=== PATIENT | female | born 1955 | race Caucasian/White ===

== ENCOUNTER 2023-09-23 14:01 | Inpatient (IN) | payer SELFPAY ==
[~2023-09-23] VITALS: Ht 157.5 cm; Wt 77.6 kg
[2023-09-23] MEDS: SODIUM CHLORIDE 0.9% 1,000 ML IV SCH (02:00)
[2023-09-23 14:53] LABS: HEMATOCRIT. 37.6 % (36.0-48.0); HEMOGLOBIN. 12.5 g/dL (12.0-16.0); MEAN CORPUSCULAR HGB CONC 33.3 g/dL (31.0-37.0); MEAN CORPUSCULAR VOLUME 90.4 fL (81.0-99.0); MEAN PLATELET VOLUME 8.9 fl (7.4-10.4); PLATELET 245 x1000/uL (130-400); RED BLOOD CELL COUNT 4.16 mill/uL (4.2-5.4); RED CELL DISTRIBUTION WIDTH 13.1 % (11.6-14.6); WHITE BLOOD COUNT 26.2 x1000/uL (4.5-11.0)
[2023-09-23 15:00] LABS: DIFFERENTIAL COMMENT 1
[2023-09-23 15:06] LABS: ALANINE AMINOTRANSFERASE 15 IU/L (10-49); ALBUMIN 4.6 g/dL (3.2-4.8); ASPARTATE AMINOTRANSFERASE 19 IU/L (<34); BILIRUBIN TOTAL 0.7 mg/dL (0.1-1.0); CALCIUM 9.2 mg/dL (8.7-10.4); CARBON DIOXIDE 23 mEq/L (21-32); CHLORIDE 99 mEq/L (98-107); CREATININE 0.9 mg/dL (0.6-1.0); GLUCOSE 169 mg/dL (70-105); POTASSIUM 3.3 mEq/L (3.5-5.1); PROTEIN TOTAL 8.6 g/dL (6.0-8.3); SODIUM 133 mEq/L (136-145); TROPONIN I HIGH SENSITIVITY 4 ng/L (3.0-34); UREA NITROGEN BLOOD 16 mg/dL (9-23)
[2023-09-23] MEDS ORDERED: IPRATROPIUM BROMIDE (0.02%) 0.5MG/2.5ML NEB HHN STA (15:34)
[2023-09-23] MEDS ORDERED: HYDROCODONE/ACETAMINOPHEN 5/325MG TABLET PO STA (15:34)
[2023-09-23] MEDS ORDERED: ALBUTEROL (0.083%) 2.5MG/3ML NEB HHN STA (15:34)
[2023-09-23] MEDS ORDERED: PREDNISONE 20MG TABLET PO STA (15:34)
[2023-09-23] MEDS ORDERED: SODIUM CHLORIDE 0.9% 1000ML BAG (SEPSIS BOLUS) IV ONE (15:45)
[2023-09-23] MEDS ORDERED: AZITHROMYCIN 500MG/250ML 250 ML IV NR (15:45)
[2023-09-23] MEDS ORDERED: LEVOFLOXACIN 250MG TABLET PO ONE (15:45)
[2023-09-23] MEDS ORDERED: CEFTRIAXONE 1GM PREMIX 50 ML IV NR (15:45)
[2023-09-23 15:49] LABS: PLATELET ESTIMATE NORMAL
[2023-09-23] MEDS ORDERED: IPRATROPIUM BROMIDE (0.02%) 0.5MG/2.5ML NEB HHN NR (16:00)
[2023-09-23] MEDS ORDERED: ALBUTEROL (0.083%) 2.5MG/3ML NEB HHN NR (16:00)
[2023-09-23] MEDS ORDERED: PREDNISONE 20MG TABLET PO NR (16:00)
[2023-09-23] MEDS ORDERED: HYDROCODONE/ACETAMINOPHEN 5/325MG TABLET PO NR (16:00)
[2023-09-23 16:05] VITALS: PULSE 106; RESP 22; O2SAT 96
[2023-09-23] MEDS ORDERED: POTASSIUM CHLORIDE 20MEQ TABLET SR PO NR (16:30)
[2023-09-23] MEDS ORDERED: ONDANSETRON HCL 4MG/2ML INJ IV ONE (18:00)
[2023-09-23] MEDS ORDERED: ONDANSETRON HCL 4MG/2ML INJ IV NR (21:00)
[2023-09-23 22:05] VITALS: BP 106/53; PULSE 94; RESP 20; TEMP 96.3
[2023-09-23] MEDS ORDERED: ACETAMINOPHEN 325MG TABLET PO PRN ×2 (22:45)
[2023-09-23] MEDS ORDERED: CLONIDINE 0.1MG TABLET PO PRN (22:45)
[2023-09-23] MEDS ORDERED: ONDANSETRON HCL 4MG/2ML INJ IV PRN (22:45)
[2023-09-23] MEDS ORDERED: KETOROLAC 30MG/ML VIAL IV NR (22:45)
[2023-09-23] MEDS ORDERED: MAGNESIUM/ALUMINUM HYDROXIDE/SIMETHICONE 30ML UDC PO PRN (22:45)
[2023-09-23] MEDS ORDERED: DOCUSATE SODIUM 100MG CAPSULE PO PRN (22:45)
[2023-09-23] MEDS ORDERED: GUAIFENESIN 200MG/10ML SUGAR FREE UDC PO PRN (22:45)
[2023-09-23] MEDS ORDERED: IPRATROPIUM/ALBUTEROL 0.5-3(2.5)MG/3ML NEB HHN PRN (22:45)
[2023-09-24 03:05] VITALS: BP 107/45; PULSE 87; RESP 18; TEMP 97
[2023-09-24] MEDS: LIDOCAINE 5% PATCH TOP SCH ×2 (03:44→09:37)
[2023-09-24 04:45] VITALS: BP 105/58; PULSE 88; RESP 18
[2023-09-24 07:04] LABS: HEMATOCRIT. 32.8 % (36.0-48.0); HEMOGLOBIN. 10.9 g/dL (12.0-16.0); MEAN CORPUSCULAR HEMOGLOBIN 30.3 pg (28.0-32.0); MEAN CORPUSCULAR HGB CONC 33.2 g/dL (31.0-37.0); MEAN CORPUSCULAR VOLUME 91.2 fL (81.0-99.0); PLATELET 212 x1000/uL (130-400); RED BLOOD CELL COUNT 3.59 mill/uL (4.2-5.4); RED CELL DISTRIBUTION WIDTH 12.7 % (11.6-14.6); WHITE BLOOD COUNT 23.5 x1000/uL (4.5-11.0)
[2023-09-24 07:20] LABS: ALANINE AMINOTRANSFERASE 11 IU/L (10-49); ALBUMIN 3.8 g/dL (3.2-4.8); ASPARTATE AMINOTRANSFERASE 10 IU/L (<34); BILIRUBIN DIRECT 0.1 mg/dL (<=3.0); BILIRUBIN TOTAL 0.4 mg/dL (0.1-1.0); CALCIUM 8.9 mg/dL (8.7-10.4); CARBON DIOXIDE 24 mEq/L (21-32); CHLORIDE 104 mEq/L (98-107); CHOLESTEROL 125 mg/dL (<200); CREATININE 0.7 mg/dL (0.6-1.0); GLUCOSE 128 mg/dL (70-105); HDL CHOLESTEROL 54 mg/dL (>65); LDL CHOLESTEROL 42 mg/dL (5-100); PHOSPHORUS 3.3 mg/dL (2.5-4.9); POTASSIUM 4.2 mEq/L (3.5-5.1); PROTEIN TOTAL 7.1 g/dL (6.0-8.3); SODIUM 135 mEq/L (136-145); T4 FREE 1.26 ng/dL (0.89-1.76); THYROID STIMULATING HORMONE 0.24 uIU/mL (0.55-4.78); TRIGLYCERIDE 45 mg/dL (0-150); UREA NITROGEN BLOOD 15 mg/dL (9-23)
[2023-09-24 07:33] LABS: DIFFERENTIAL COMMENT 1
[2023-09-24 08:00] VITALS: BP 106/72; PULSE 86; RESP 18; TEMP 96.7
[2023-09-24] MEDS ORDERED: LIDOCAINE 5% PATCH TOP SCH (09:00)
[2023-09-24] MEDS: PANTOPRAZOLE SODIUM 40 MG/VIAL IV SCH (09:03)
[2023-09-24] MEDS: SODIUM CHLORIDE 0.9% 1,000 ML IV SCH (11:59)
[2023-09-24 12:00] VITALS: BP 105/59; PULSE 91; RESP 18; TEMP 96.3
[2023-09-24] MEDS: ACETYLCYSTEINE 200MG/ML 20% VIAL 4ML INH SCH (13:44)
[2023-09-24] MEDS: KETOROLAC 15MG/ML VIAL IV PRN (13:44)
[2023-09-24] MEDS: CEFTRIAXONE 1GM PREMIX 50 ML IV SCH (14:37)
[2023-09-24] MEDS ORDERED: AZITHROMYCIN 500 MG in DEXT 5% WATER 250 ML IV SCH (15:00)
[2023-09-24 16:00] VITALS: BP 121/69; PULSE 102; RESP 20; TEMP 96.1
[2023-09-24 20:00] VITALS: BP 114/62; PULSE 90; RESP 18; TEMP 98.6
[2023-09-25] VITALS: BP_SYST 101; BP_SYST 134; BP_DIAS 56; BP_DIAS 81; PULSE 91; PULSE 93; RESP 18; RESP 20; TEMP 97; TEMP 97.9
[2023-09-25] MEDS: SODIUM CHLORIDE 0.9% 1,000 ML IV SCH ×3 (01:25→17:04)
[2023-09-25] MEDS: ACETYLCYSTEINE 200MG/ML 20% VIAL 4ML INH SCH (02:04)
[2023-09-25] MEDS: KETOROLAC 15MG/ML VIAL IV PRN (02:11)
[2023-09-25 06:04] LABS: CALCIUM 8.3 mg/dL (8.7-10.4); CARBON DIOXIDE 25 mEq/L (21-32); CHLORIDE 107 mEq/L (98-107); CREATININE 0.6 mg/dL (0.6-1.0); GLUCOSE 111 mg/dL (70-105); POTASSIUM 4.1 mEq/L (3.5-5.1); SODIUM 138 mEq/L (136-145); UREA NITROGEN BLOOD 20 mg/dL (9-23)
[2023-09-25 06:05] LABS: BASOPHILS % 0.4 % (0.0-2.0); EOSINOPHILS % 0.2 % (0.0-5.0); HEMATOCRIT. 33.1 % (36.0-48.0); HEMOGLOBIN. 11.4 g/dL (12.0-16.0); LYMPHOCYTES % 16.9 % (20.0-50.0); MEAN CORPUSCULAR HGB CONC 34.4 g/dL (31.0-37.0); NEUTROPHILS % 76.5 % (40.0-76.0); PLATELET 202 x1000/uL (130-400); RED BLOOD CELL COUNT 3.68 mill/uL (4.2-5.4); RED CELL DISTRIBUTION WIDTH 13.1 % (11.6-14.6); WHITE BLOOD COUNT 10.7 x1000/uL (4.5-11.0)
[2023-09-25 08:00] VITALS: BP 129/64; PULSE 85; RESP 18; TEMP 96.5
[2023-09-25] MEDS: PANTOPRAZOLE SODIUM 40 MG/VIAL IV SCH (08:46)
[2023-09-25] MEDS: LIDOCAINE 5% PATCH TOP SCH (08:47)
[2023-09-25 12:00] VITALS: BP 100/54; PULSE 67; RESP 16; TEMP 96.3
[2023-09-25 13:50] LABS: PLATELET ESTIMATE NORMAL
[2023-09-25] MEDS: CEFTRIAXONE 1GM PREMIX 50 ML IV SCH (15:00)
[2023-09-25] MEDS ORDERED: AZITHROMYCIN 500MG/250ML 250 ML IV SCH (15:00)
[2023-09-25 16:00] VITALS: BP 116/62; PULSE 81; RESP 19; TEMP 98.6
[2023-09-25 20:00] VITALS: BP 127/65; PULSE 93; RESP 18; TEMP 98.6
[2023-09-26 04:00] VITALS: BP 124/71; PULSE 93; RESP 20; TEMP 97
[2023-09-26] MEDS: SODIUM CHLORIDE 0.9% 1,000 ML IV SCH (04:05)
[2023-09-26 07:03] LABS: CALCIUM 8.6 mg/dL (8.7-10.4); CARBON DIOXIDE 26 mEq/L (21-32); CHLORIDE 106 mEq/L (98-107); CREATININE 0.6 mg/dL (0.6-1.0); GLUCOSE 100 mg/dL (70-105); POTASSIUM 3.8 mEq/L (3.5-5.1); SODIUM 138 mEq/L (136-145); UREA NITROGEN BLOOD 12 mg/dL (9-23)
[2023-09-26 07:15] LABS: HEMATOCRIT 34.4 % (36.0-48.0); HEMOGLOBIN 11.8 g/dL (12.0-16.0); MEAN CORPUSCULAR HEMOGLOBIN 30.4 pg (28.0-32.0); MEAN CORPUSCULAR HGB CONC 34.2 g/dL (31.0-37.0); MEAN CORPUSCULAR VOLUME 89.1 fL (81.0-99.0); PLATELET 258 x1000/uL (130-400); RED BLOOD CELL COUNT 3.86 mill/uL (4.2-5.4); RED CELL DISTRIBUTION WIDTH 13.3 % (11.6-14.6); WHITE BLOOD COUNT 7.4 x1000/uL (4.5-11.0)
[2023-09-26 08:00] VITALS: BP 118/73; PULSE 89; RESP 18; TEMP 99.9
[2023-09-26] MEDS ORDERED: FAMOTIDINE 20MG/2ML VIAL IV SCH (09:00)
[2023-09-26] MEDS: LIDOCAINE 5% PATCH TOP SCH (09:29)
[2023-09-26] MEDS ORDERED: AZIT250T12 PO (09:38)
[2023-09-26] MEDS ORDERED: AMOX1TAB16 MT (09:38)
== END 2023-09-26 11:40 | disposition home or self-care (01) | DRG 720 ==
LOC: ER 14:01 → 8WST 21:45
PROVIDERS: ADMIT Internal Medicine; ATTEND Internal Medicine
DX: A41.9 Sepsis, unspecified organism (principal); J18.9 Pneumonia, unspecified organism; E87.1 Hypo-osmolality and hyponatremia; Z20.822 Contact with and (suspected) exposure to COVID-19; E87.6 Hypokalemia; K57.90 Diverticulosis of intestine, part unspecified, without perforation or abscess without bleeding; R73.9 Hyperglycemia, unspecified; Z86.16 Personal history of COVID-19; Z79.899 Other long term (current) drug therapy
CPT/HCPCS: 36415; 71045; 71250; 74176; 76700; 80048; 80053; 80061; 80076; 82962; 83036; 83605; 83735; 83880; 84100; 84145; 84439; 84443; 84484; 85025; 85027; 85651; 87426; 87804; 93005; 94644; 99285; C9113; J0456; J0696; J1885; J2405; J3490; J7030; J7060; J7512; J7608